=== PATIENT | female | born 1965 | race Caucasian/White ===

== ENCOUNTER 2016-09-05 17:03 | Emergency (ER) | payer OTHER ==
[2016-09-05 17:35] LABS: BASO % 0.3 % (0.1-1.2); EOS # 0.1 10_X3_uL (0.0-0.4); EOS % 1.5 % (0.7-5.8); GRAN # 3.8 10_X3_uL (1.6-6.1); GRAN % 58.5 % (34.0-71.1); HEMATOCRIT 45.3 % (34-45); HEMOGLOBIN 15.4 g/dL (11.2-15.7); LYMPH # 2.1 10_X3_uL (1.2-3.7); MEAN CORPUSCULAR HEMOGLOBIN 30.7 pg (27.0-33.0); MEAN CORPUSCULAR VOLUME 90.2 fL (79-95); MEAN PLATELET VOLUME 11.3 fl (7.5-11.5); MONO # 0.5 10_X3_uL (0.2-0.9); MONO % 7.7 % (4.7-12.5); PLATELET COUNT 139 x10_3/uL (182-369); RED BLOOD COUNT 5.02 x10_6/uL (3.9-5.2); RED CELL DISTRIBUTION WIDTH 14.9 % (11.7-14.4); WHITE BLOOD COUNT 6.5 x10_3/uL (4.0-10.0)
[2016-09-05 17:49] LABS: INR 1.2 (0.9-1.1); PARTIAL THROMBOPLASTIN TIME 22.3 SECONDS (21.3-29.3); PROTHROMBIN TIME (PATIENT) 12.2 SECONDS (9.9-11.1)
[2016-09-05 18:19] LABS: ALBUMIN 3.3 gm/dL (3.4-5.0); ALKALINE PHOSPHATASE 142 U/L (50-136); ALT/SGPT 111 U/L (3.5-33.9); AST/SGOT 95 U/L (7.04-26.96); BILIRUBIN,TOTAL 0.35 mg/dL (0.0-1.0); BLOOD UREA NITROGEN 9 mg/dL (7-18); CALCIUM 8.3 mg/dL (8.7-10.7); CARBON DIOXIDE 20 mmol/L (21-32); CREATINE KINASE 37 U/L (21-215); CREATININE 0.5 mg/dL (0.6-1.3); GLUCOSE,RANDOM 221 mg/dL (70-99); POTASSIUM 3.5 mmol/L (3.5-5.1); SODIUM 140 mmol/L (136-145); TOTAL PROTEIN 6.2 gm/dL (6.4-8.2)
== END 2016-09-05 18:33 | disposition short-term general hospital (02) ==
LOC: ER 17:03
PROVIDERS: Internal Medicine
DX: I63.9 Cerebral infarction, unspecified (principal); R06.02 Shortness of breath; Z79.899 Other long term (current) drug therapy
CPT/HCPCS: 36415; 36556; 51702; 70450; 71010; 80053; 82550; 82553; 85025; 85610; 85730; 93005; 96374; 99070; 99285-25; J2997